=== PATIENT | female | born 1935 | race Caucasian/White ===

== ENCOUNTER 2018-02-20 00:46 | Emergency (ER) | payer SELFPAY ==
[~2018-02-20] VITALS: Ht 160 cm; Wt 63.7 kg
[2018-02-20 01:00] VITALS: BP 178/82
[2018-02-20] MEDS ORDERED: PRON INH (01:08)
[2018-02-20] MEDS ORDERED: IPRATROPIUM 0.02% 0.5 MG/2.5 ML NEBU INH ONE (01:30)
[2018-02-20] MEDS ORDERED: NACL 0.9% 1,000 ML IV ONE (01:30)
[2018-02-20] MEDS ORDERED: ALBUTEROL 0.083% 2.5 MG/3 ML NEBU INH ONE (01:30)
[2018-02-20] MEDS ORDERED: predniSONE 20 MG TAB PO ONE (01:30)
[2018-02-20 01:54] LABS: BASOPHILS % (AUTO) 0.5 % (0.0-2.0); EOSINOPHILS # (AUTO) 0.1 K/uL (0-0.4); EOSINOPHILS % (AUTO) 0.9 % (0.0-4.0); HEMATOCRIT 43.1 % (36-48); HEMOGLOBIN 14.4 g/dL (12.0-16.0); LYMPHOCYTES # (AUTO) 1.9 K/uL (2.5-16.5); LYMPHOCYTES % (AUTO) 28.2 % (20.5-51.1); MEAN CORPUSCULAR HEMOGLOBIN 31 pg (27-31); MEAN CORPUSCULAR HGB CONC 33 g/dL (33-37); MEAN CORPUSCULAR VOLUME 93.9 fL (80-94); MONOCYTES # (AUTO) 0.5 K/uL (0.8-1.0); NEUTROPHILS # (AUTO) 4.3 K/uL (1.8-7.7); NEUTROPHILS % (AUTO) 62.4 % (42.2-75.2); PLATELET COUNT (AUTO) 203 K/uL (140-450); RED BLOOD CELL COUNT(AUTO) 4.59 MIL/uL (4.20-5.40); RED CELL DISTRIBUTION WIDTH 12.1 % (11.6-13.7); WHITE BLOOD COUNT (AUTO) 6.8 K/uL (4.8-10.8)
[2018-02-20 02:20] LABS: ALBUMIN 3.4 g/dL (3.4-5.0); ANION GAP 11.7 (8-16); ASPARTATE AMINOTRANSFERASE 29 U/L (15-37); CHLORIDE 107 mmol/L (98-107); CREATININE 0.5 mg/dL (0.6-1.3); GLUCOSE 102 mg/dL (74-106); SODIUM SERUM 144 mmol/L (136-145); TOTAL BILIRUBIN 0.6 mg/dL (0.0-1.0); UREA NITROGEN, BLOOD 18 mg/dL (7-18)
[2018-02-20 02:29] LABS: CREATINE KINASE MB 1.3 ng/mL (0-3.6)
[2018-02-20 02:59] LABS: POTASSIUM 2.7 mmol/L (3.5-5.1)
[2018-02-20] MEDS ORDERED: MAG SULF 2000 MG/WATER PREMIX 50 ML IV ONE (03:15)
[2018-02-20] MEDS ORDERED: KCL 20 MEQ/WATER INJ PREMIX 100 ML IV ONE (03:15)
[2018-02-20] MEDS ORDERED: POTASSIUM CHLORIDE 10 MEQ TABER PO ONE ×2 (03:15→03:25)
[2018-02-20] MEDS ORDERED: NACL 0.9% 1,000 ML IV SCH (03:17)
[2018-02-20] MEDS ORDERED: ZOLPIDEM 5 MG TAB PO PRN (03:20)
[2018-02-20] MEDS ORDERED: LORazepam 2 MG/ML VIAL IM/IVP PRN (03:20)
[2018-02-20] MEDS ORDERED: DOCUSATE SODIUM 100 MG GELCAP PO PRN (03:20)
[2018-02-20] MEDS ORDERED: MORPHINE SULFATE 2 MG/ML SYR IVP PRN (03:20)
[2018-02-20] MEDS ORDERED: ACETAMINOPHEN 325 MG TAB PO PRN (03:20)
[2018-02-20] MEDS ORDERED: ALBUTEROL SULFATE/IPRATROPIU 3 ML SOL IH PRN (03:20)
[2018-02-20] MEDS ORDERED: HYDROcodone/APAP 5/325 MG 1 TAB TAB PO PRN (03:20)
[2018-02-20] MEDS ORDERED: ONDANSETRON 4 MG/2 ML VIAL IM/IVP PRN (03:20)
[2018-02-20] MEDS ORDERED: MAGNESIUM OXIDE 400 MG TAB PO ONE (03:25)
[2018-02-20] MEDS ORDERED: POTASSIUM CHLORIDE 20% 40 MEQ/15 ML UDC PO ONE (03:30)
[2018-02-20] MEDS ORDERED: MAGNESIUM OXIDE 400 MG TAB ONE (03:41)
[2018-02-20 04:17] LABS: APPEARANCE,URINE CLEAR (CLEAR); BILIRUBIN,URINE NEGATIVE (NEGATIVE); BLOOD, URINE TRACE-L (NEGATIVE); COLOR,URINE YELLOW (YELLOW); LEUKOCYTE ESTERASE ,URINE NEGATIVE (NEGATIVE); NITRITE, URINE NEGATIVE (NEGATIVE); UGLUCOSE NEGATIVE (NEGATIVE)
[2018-02-20 04:18] LABS: RBC,URINE 3-10 (FEW) /HPF (0-5); WBC,URINE 0-5 (RARE) /HPF (0-5)
[2018-02-20 04:19] LABS: CALCIUM OXALATE CRYSTALS,UR >100 /HPF (None Seen)
[2018-02-20 05:01] VITALS: BP 163/71
[2018-02-20] MEDS ORDERED: ALBUTEROL SULFATE/IPRATROPIU 3 ML SOL IH SCH (06:00)
== END 2018-02-20 04:55 | disposition home or self-care (01) ==
LOC: MED 00:46
DX: B34.9 Viral infection, unspecified (principal); E87.6 Hypokalemia; J45.901 Unspecified asthma with (acute) exacerbation; Z79.899 Other long term (current) drug therapy
CPT/HCPCS: 36415; 80053; 81001; 82550; 82553; 82948; 83605; 84484; 85025; 87040; 87804; 93005; 94640; 96360; 99284; J7030; J7512; J7613; J7644